=== PATIENT | male | born 1995 | race Caucasian/White ===

== ENCOUNTER 2016-09-21 15:00 | Emergency (ER) | payer OTHER ==
[~2016-09-21] VITALS: Ht 185.4 cm; Wt 78.0 kg
--- OUTSIDE RECORDS SUMMARY | 2016-09-21 15:12 | XMS REPORT | Summary of Care ---
Author Author Hema Lim M.D. Organization Unknown Address Unknown Phone Unavailable Care Team Providers Care Linux System Engineer Name Role Phone Hema Lim M.D. 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) Status: Active Medications Name Dates Details No Reported Medications Refills: 0 Active Allergies and Adverse Reactions Name Dates Details No Known Allergies (Allergy) Status: Active Procedures Procedure Dates Details Procedures not documented Immunization Name Dates Details Immunizations not documented Family History Name Dates Details Family history of hypertension (V17.49, Z82.49) Status: Active Name Dates Details Family history of diabetes mellitus (V18.0, Z83.3) Status: Active Name Dates Details Family history of cardiac disorder (V17.49, Z82.49) Status: Active Family history of High cholesterol (272.0, E78.00) Status: Active Name Dates Details No pertinent family history Status: Active Name Dates Details No pertinent family history Status: Active Social History Name Dates Details - Status: Name Dates Details Smoker. current status unknown Vital Signs Date Test Result Details 24-Mar-2016 09:07 Temperature 96.8 f Status: Comments: Method: Heart Rate 69 /min Status: Comments: Location: ; Height 75 in Status: Weight 180 lb Status: Physical Findings 99 Status: Comments: O2 Saturation Body Mass Index Calculated 22.5 kg/m2 Status: Body Surface Area Calculated 2.1 m2 Status: 16-Mar-2016 17:20 BP Systolic 144 mm[Hg] Status: BP Diastolic 90 mm[Hg] Status: Temperature 99 f Status: Comments: Method: Heart Rate 91 /min Status: Comments: Location: ; Weight 178 lb Status: Physical Findings 99 Status: Comments: O2 Saturation Results Date Description Value Details Results not documented Plan of Care Name Dates Details Planned Observations Planned Goals not documented Planned Encounters Appointment; Provider: Hema Lim M.D. On 07-Apr-2016 09:15 Instructions Name Dates Details Instructions not documented Encounters Appointment; Fabiola Kaba D.O. Encounter Diagnosis: Problem not documented On 16-Mar-2016 17:20
[2016-09-21] MEDS ORDERED: KETOROLAC 60 MG/2 ML (TORADOL) VIAL IM ONE (15:40)
--- NOTE | 2016-09-21 16:08 | Diagnostic Imaging Report ---
PROCEDURE: CT head without contrast. TECHNIQUE: Multiple contiguous axial images were obtained through the brain without the use of intravenous contrast. INDICATION: Trauma. Blurred vision. Headache. COMPARISON: None. FINDINGS: No intracranial hemorrhage, mass effect, hydrocephalus, or extra-axial fluid collections. No CT evidence of acute infarction. Osseous structures are intact. Fluid throughout the left mastoid and middle ear. The right mastoid and paranasal sinuses are clear. IMPRESSION: 1. No acute intracranial CT findings. No fractures. 2. Fluid throughout the left mastoid and middle ear. Dictated by: Dictated on workstation # [id number]
[2016-09-21 16:59] VITALS: BP 112/62
== END 2016-09-21 17:01 | disposition home or self-care (01) ==
LOC: ED 15:08
DX: S00.211A Abrasion of right eyelid and periocular area, initial encounter (principal); R51 Headache; W22.09XA Striking against other stationary object, initial encounter; Y93.89 Activity, other specified; Y92.512 Supermarket, store or market as the place of occurrence of the external cause; Y99.0 Civilian activity done for income or pay
CPT/HCPCS: 70450; 96372; 99283; J1885